=== PATIENT | male | born 2000 | race Caucasian/White ===

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

== ENCOUNTER 2019-10-26 02:17 | Emergency (ER) | payer MEDICAID, SELFPAY ==
[2019-10-26 02:27] VITALS: BP 137/93; PULSE 107; RESP 15; TEMP 37.1; O2SAT 97; BMI 29.8
--- NOTE | 2019-10-26 02:31 | XR_ITS ---
PROCEDURE: XR ANKLE LT MIN 3V CLINICAL INDICATION: fall Posttraumatic pain COMPARISON: No exams were available for comparison FINDINGS: There is a nondisplaced fracture involving the distal shaft of the fibula just above the level of the ankle joint. The fracture is oblique in nature. The ankle mortise is preserved.. The tibiofibular syndesmosis appears slightly widened. There is a mildly prominent os trigonum. IMPRESSION: 1. Nonacute distal fibular fracture. 2. Questionable mild widening of the tibiofibular syndesmosis. MRI may provide further evaluation to exclude the possibility of syndesmotic injury Dictated by: Ricky Pa MD 10/26/2019 08:13 Electronically signed by Ricky Pa MD in [place] 10/26/2019 08:13
[2019-10-26 03:02] VITALS: BP 135/80; PULSE 104; RESP 18; O2SAT 95
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
[2019-10-26 03:44] VITALS: BP 149/85; PULSE 70; RESP 18; TEMP 36.5; O2SAT 99
== END 2019-10-26 03:51 | disposition home or self-care (01) ==
PROVIDERS: Emergency Provider Emergency Medicine
DX: S82.832A Other fracture of upper and lower end of left fibula, initial encounter for closed fracture (principal); W18.39XA Other fall on same level, initial encounter; Y92.89 Other specified places as the place of occurrence of the external cause
CPT/HCPCS: 29515; 73610; 99284

== ENCOUNTER → 2019-10-30 10:21 | Outpatient (CLI) | payer MEDICAID, SELFPAY ==
--- NOTE | 2019-10-30 10:23 | XR_ITS ---
PROCEDURE: XR TIBIA FIBULA LT 2V CLINICAL INDICATION: pain Posttraumatic pain COMPARISON: XR ANKLE LT MIN 3V from 10/26/2019 FINDINGS: There is a nondisplaced fracture involving the distal shaft of the fibula oblique in nature. The proximal mid aspect of the tib fib have an unremarkable appearance. IMPRESSION: Nondisplaced distal fibular fracture Dictated by: Ricky Pa MD 10/30/2019 14:47 Electronically signed by Ricky Pa MD in [place] 10/30/2019 14:47
== END ==
PROVIDERS: PCP Nurse Practitioner Family; Visit Provider Podiatrist
DX: S82.892A Other fracture of left lower leg, initial encounter for closed fracture (principal)
CPT/HCPCS: 73590

== ENCOUNTER → 2019-11-12 15:10 | Outpatient (CLI) | payer MEDICAID, SELFPAY ==
--- NOTE | 2019-11-12 15:29 | MR_ITS ---
PROCEDURE: MR ANKLE LT WO/W CON CLINICAL INDICATION: ankle pain, possible syndesmosis injury with widening the ankle mortise. Ankle fracture. Ankle fx x3 weeks. 25ml prohance injected. COMPARISON: XR ANKLE LT MIN 3V from 10/26/2019 TECHNIQUE: Routine multiplanar multi echo sequences are performed without gadolinium enhancement. FINDINGS: Motion artifact somewhat obscures fine detail. This is specially true on the sagittal images. The anterior tibiofibular ligament has a somewhat bowed appearance with some thinning and could be due to sprain or partial tear. The posterior tibiofibular ligament is unremarkable. The tibial fibular space does not appear widened. There is some thinning of the ATFL but no evidence of a complete tear. The PT FL appears intact. The deltoid ligament appears intact. There is soft tissue swelling about the distal fibula both medially and laterally with a nondisplaced oblique fracture of the distal shaft of the fibula. There is some bone marrow edema of the medial malleolar region. The peroneal tendons, posterior tibialis, flexor hallucis and flexor digitorum longus tendons appear intact. The anterior extensor tendons appear intact. Achilles tendon is unremarkable. There is also some minimal bone marrow edema of the posterior distal tibia. Small ankle joint effusion is present. IMPRESSION: 1. Sprain or partial tear of the anterior tibiofibular ligament. The posterior tibiofibular ligament appears intact. 2. Nondisplaced oblique fracture of the distal shaft of the fibula with bone marrow edema and mild amount of soft tissue edema. 3. Bone bruise of the medial malleolus and along the posterior distal tibia with ankle joint effusion and moderate amount of subcutaneous ankle edema Dictated by: Ricky Pa MD 11/14/2019 10:13 Electronically signed by Ricky Pa MD in [place] 11/14/2019 10:13
== END ==
PROVIDERS: PCP Nurse Practitioner Family; Visit Provider Podiatrist
DX: S82.432A Displaced oblique fracture of shaft of left fibula, initial encounter for closed fracture (principal); S93.432A Sprain of tibiofibular ligament of left ankle, initial encounter; S99.912A Unspecified injury of left ankle, initial encounter
CPT/HCPCS: 73723; A9576

== ENCOUNTER 2020-01-27 10:58 | Emergency (ER) | payer MEDICAID, SELFPAY ==
[2020-01-27 11:13] VITALS: BP 135/77; PULSE 84; RESP 19; TEMP 36.6; O2SAT 98; BMI 38.3
--- NOTE | 2020-01-27 11:31 | PC.NURSE ---
PATIENT REQUESTING VACCINATION ONLY; IS NOT WANTING TO BE SEEN BY PROVIDER
[2020-01-27 11:32] VITALS: BP 135/77; PULSE 84; RESP 19; TEMP 36.6; O2SAT 98
== END 2020-01-27 11:33 | disposition home or self-care (01) ==
PROVIDERS: Emergency Provider Nurse Practitioner Family
DX: S91.331A Puncture wound without foreign body, right foot, initial encounter (principal); W22.8XXA Striking against or struck by other objects, initial encounter; Z23 Encounter for immunization
CPT/HCPCS: 90471; 90715

== ENCOUNTER 2021-03-07 20:06 | Emergency (ER) | payer MEDICAID, SELFPAY ==
[2021-03-07 20:26] VITALS: BP 156/87; PULSE 107; RESP 19; TEMP 36.8; O2SAT 98; BMI 38.3
[2021-03-07 20:52] VITALS: BP 156/87; PULSE 107; RESP 19; TEMP 36.8
--- NOTE | 2021-03-07 21:00 | HMH.EDUTC ---
[facility] [place] [facility] Disposition Clinical Impression: Nasal dryness Disposition: Home, Self-Care Condition on Discharge: Good Instructions: Nosebleeds (Alternative Therapy), Nosebleed, DI for Nosebleed, Pseudoephedrine Additional Instructions: Make sure to keep nasal passages moist you may use saline nasal spray as directed to help moisture nasal passage Follow up with your Family Doctor or ENT for further evaluation and treatment Return if needed Straight to ER if any life threatening symptoms If you are having trouble stopping your nose bleed may spray one to two sprays of Afrin in nasal passages Referrals: Suzan Warner PA [Primary Care Provider] - As needed Andrew Joseph MD [Staff Physician] - Marie Gordon MD [Consulting Physician] - Forms: Work/School Release Time of Disposition: 21:11 Medical Decision Making - Ed Inquiry Pt receiving controlled substance: No Ed was queried for this patient: No Vital Signs: 03/07/21 20:26 03/07/21 20:52 Temperature 98.3 F 98.3 F Temperature Source Oral Pulse Rate 107 H Pulse Rate [Left] 107 H Respiratory Rate 19 19 Blood Pressure 156/87 H Blood Pressure [Right Arm] 156/87 H Blood Pressure Mean [Right Arm] 110 02 Sat by Pulse Oximetry 98 [facility] [place] [facility] HPI - General Stated complaint: nosebleeds Time Seen by Provider: 03/07/21 21:00 Mode of Arrival: Ambulatory Source of Information: Patient Limitations: No Limitations Description of Symptoms (Recalled from Triage Doc. 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 pts is not having epistaxis at this time. 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 and he has been having nose bleeds on and off for awhile State that he feels like his nose is dry and when he blows it it will start bleeding State sthat work wanted him to come and get it checked so he came in No active bleeding at this time and last nose bleed was yesterday - Related Data Previous Rx's Medication Instructions Recorded ketoconazole 2 % topical cream 1 applic TOPICAL QDAY #30 g 10/30/19 meloxicam 7.5 mg tablet 7.5 mg PO ONCE #30 tab 10/30/19 Allergies Allergy/AdvReac Type Severity Reaction Status Date / Time No Known Allergies Allergy Verified 10/30/19 11:47 - Worker's Comp Is this a Worker's Comp case?: No H History - Hepatitis A Screen Drug use history?: No High risk sexual behaviors?: No History of sexually transmitted infection?: No Currently employed?: No Childcare worker?: No Do you have indoor plumbing?: Yes Do you have electricity?: Yes Attestation statement:: This patient has been screened for Hepatitis A risk factors. I have reviewed the patient's past medical history: Yes Medical History: Reports:: Asthma, Migraine Other Surgeries: Yes: No Previous Surgery - Social History Smoking Status: Light tobacco smoker Tobacco Type: smokeless tobacco # Packs/Day (cigarettes): 1 Alcohol Intake: never Alcohol Intake Frequency:: other Occupational Status: employed Family Hx:: Diabetes (Father), Cancer (Nephew ), Heart Attack (Maternal Grandfather), Hypertension, Hyperlipidemia, Asthma ROS Obtained: Yes All systems reviewed & no additional complaints, Yes Systems reviewed as appropriate & no additional complaints - Constitutional Constitutional: Reports system reviewed and no additional complaints, except as docu - Eyes Eyes: Reports system reviewed and no additional complaints, except as docu - ENT Ears, Nose, Mouth, and Throat: Reports system reviewed and no additional complaints, except as docu, Reports other (nasal dryness and nose bleeds on and off) Physical Exam - Gen
== END 2021-03-07 21:14 | disposition home or self-care (01) ==
PROVIDERS: Emergency Provider Nurse Practitioner; PCP Physician Assistant
DX: J34.89 Other specified disorders of nose and nasal sinuses (principal); F17.290 Nicotine dependence, other tobacco product, uncomplicated
CPT/HCPCS: 99202; G0463

== ENCOUNTER 2021-07-12 10:51 | Emergency (ER) | payer MEDICAID, SELFPAY ==
[2021-07-12 13:00] VITALS: BP 0/0; PULSE 0; RESP 0; TEMP -17.7; TEMP 0; O2SAT 0
== END 2021-07-12 13:01 | disposition left against medical advice (07) ==
LOC: UTC 10:57 → ER 11:06
PROVIDERS: Emergency Provider Emergency Medicine; PCP Physician Assistant
DX: Z53.21 Procedure and treatment not carried out due to patient leaving prior to being seen by health care provider (principal)
CPT/HCPCS: 99211

== ENCOUNTER 2021-07-12 19:41 | Emergency (ER) | payer MEDICAID, SELFPAY ==
[2021-07-12 19:43] VITALS: BP 149/72; PULSE 99; RESP 18; TEMP 37.3; O2SAT 99; BMI 87.0
[2021-07-12 20:00] VITALS: BP 132/67; PULSE 93; RESP 18; TEMP 37.3; O2SAT 97
--- NOTE | 2021-07-12 20:03 | XR_ITS ---
PROCEDURE INFORMATION: Exam: XR Chest Exam date and time: 07/12/2021 8:02 PM Age: 21 years old Clinical indication: Cough and fever; Additional info: Cough congestion x two days TECHNIQUE: Imaging protocol: XR of the chest. Views: 2 views. COMPARISON: No relevant prior studies available. FINDINGS: Lungs: Unremarkable. No consolidation. Pleural spaces: Unremarkable. No pleural effusion. No pneumothorax. Heart/Mediastinum: Unremarkable. No cardiomegaly. Bones/joints: Unremarkable. IMPRESSION: No acute findings.
[2021-07-12 20:13] LABS: Coronavirus 19, PCR Not Detected (NotDetected); Influenza B, PCR Not Detected (NotDetected)
[2021-07-12 20:30] VITALS: BP 144/71; PULSE 94; O2SAT 96
[2021-07-12 20:30] LABS: Strep Scrn Group A (Rapid) Negative (Negative)
--- NOTE | 2021-07-12 21:02 | HMH.EDGENADL ---
ED Disposition Clinical Impression: Viral URI with cough Disposition: Home, Self-Care Condition on Discharge: Good Additional Instructions: Please follow-up with your primary care provider in the outpatient setting, return to the ED with any new or worsening his symptoms Referrals: Suzan Warner PA [Primary Care Provider] - - Critical Care Critical Care Time: No Attestation: On 07/12/21, the high probability of a clinically significant, sudden or life threatening deterioration of the following system(s) required my full and direct attention, intervention and personal management. The time I documented below is in addition to time spent performing reported procedures but includes the following listed in this critical care notation. Medical Decision Making - Medical Records Medical records reviewed: Yes: I reviewed the patient's medical records. - Ed Inquiry Pt receiving controlled substance: No Vital Signs: 07/12/21 19:43 07/12/21 20:00 07/12/21 20:30 Temperature 99.1 F 99.1 F Temperature Source Oral Pulse Rate 93 H 94 H Pulse Rate [Left Radial] 99 H Respiratory Rate 18 18 Blood Pressure 132/67 144/71 H Blood Pressure [Right Arm] 149/72 H Blood Pressure Mean 88 97 Blood Pressure Mean [Right Arm] 97 Blood Pressure Position [Right Arm] Sitting 02 Sat by Pulse Oximetry 99 97 96 Oxygen Delivery Method Room Air - Lab Data Lab Results 07/12/21 20:04: Group A Strep Rapid Negative Orders (Tests/Meds): ORDERS Category Date Time Status CXR 2 view (NOT portable) [XR chest 2V] Stat Exams 07/12/21 20:03 Taken Rapid PCR Covid and Flu A/B Stat Lab 07/12/21 20:04 Received Strep Screen Confirmation Stat Micro 07/12/21 20:04 Received Medical Decision Narrative: Patient is an otherwise healthy 21-year-old male presents the ED today for fever, sore throat, patient is well-appearing on initial evaluation, no acute distress, vital signs within normal limits and stable, patient's chest tightness and cough and sore throat are likely related to a viral process, either bronchitis or strep throat or standard viral URI, we will do flu test Covid test, given patient's concern for his chest tightness a chest x-ray. No asymmetric lung sounds auscultated on exam and believe the likelihood of pneumonia in this patient is low given the swelling had symptoms for 24 hours, no high fevers no productive sputum. Strep swab resulted as negative, will be sent for reflex culture, cough does not resolve for some hours, I have independently reviewed and interpreted patient's chest x-ray with no evidence of focal consolidation or pneumonia, consideration for perihilar fullness, however would be very mild if present, given this we did not need to treat with antibiotics in the outpatient setting, patient given return precautions return to the ED with any new or worsening symptoms is verbalized understanding with this plan, encouraged to follow-up with PCP. General Adult HPI - General Chief complaint: Fever Stated complaint: fever, WHITNEY congestion sore throat Time Seen by Provider: 07/12/21 20:00 Mode of Arrival: Ambulatory Limitations: No Limitations Description of Symptoms (Recalled from ER Triage Doc. by RN): COUGH, FEVER (102 AT HOME) CONGESTION X 2 DAYS. SORE THROAT. PT TOOK TYLENOL PRIOR TO ARRIVAL. - History of Present Illness HPI narrative: Patient is a 21-year-old otherwise healthy male who presents the ED today for fever sore throat that began yesterday, states that he has been having a cough as well, as well as some tightness in his chest that is right in the center, states that he has not had any evidence of palpitations, no significant shortness of breath, no chest pain, no pain radiating to his upper extremities, no dizziness, confusion, or presyncope or abdominal pain or nausea. States he has been eating and drinking okay, but felt very weak today at his place of work, and states kendra
[2021-07-12 21:17] VITALS: BP 143/72; PULSE 87; RESP 18; TEMP 36.7; O2SAT 97
[2021-07-12 21:33] LABS: Influenza A, PCR Detected (NotDetected)
== END 2021-07-12 21:19 | disposition home or self-care (01) ==
PROVIDERS: Emergency Provider Student in an Organized Health Care Education/Training Program; PCP Physician Assistant
DX: J06.9 Acute upper respiratory infection, unspecified (principal); F17.210 Nicotine dependence, cigarettes, uncomplicated
CPT/HCPCS: 71046; 87430; 99283; C9803; U0003; U0005

== ENCOUNTER 2023-06-06 12:48 | Emergency (ER) | payer MEDICAID, SELFPAY ==
[2023-06-06 13:50] VITALS: BP 0/0; PULSE 0; RESP 0; TEMP -17.7; TEMP 0; O2SAT 0
== END 2023-06-06 13:50 | disposition home or self-care (01) ==
LOC: UTC 12:54
PROVIDERS: Emergency Provider Nurse Practitioner Family; PCP Nurse Practitioner Family
DX: Z53.21 Procedure and treatment not carried out due to patient leaving prior to being seen by health care provider (principal)

== ENCOUNTER 2023-10-08 11:56 | Emergency (ER) | payer MEDICAID, SELFPAY ==
[2023-10-08 12:05] VITALS: BP 158/85; PULSE 91; RESP 18; TEMP 37.1; O2SAT 97; BMI 50.1
--- NOTE | 2023-10-08 12:20 | EXP.UTC ---
Discharge Plan Disposition Patient Disposition: Home, Self-Care Prescriptions Prescriptions: New ondansetron 4 mg tablet,disintegrating 4 mg PO Q8H Qty: 10 0RF cefdinir 300 mg capsule 300 mg PO Q12H 10 Days Qty: 20 0RF Referrals Follow up/Referrals: Luis M Thrasher APRN [Primary Care Provider] - See instructions Activity Restrictions/Add. Instructions Additional Instructions/Restrictions: Take medication as prescribed. Increase fluids and rest. If symptoms persist or worsen, follow up with PCP. Clinical Impressions Clinical Impression: Acute pharyngitis Qualifiers: Pharyngitis/tonsillitis etiology: unspecified etiology Qualified Code(s): J02.9 - Acute pharyngitis, unspecified Nausea & vomiting Qualifiers: Vomiting type: bilious vomiting Qualified Code(s): R11.14 - Bilious vomiting Instructions Patient Instructions: DI for Strep Throat, DI for Vomiting -- Adult Discharge ED Provider: Chiquita Ho [facility] [place] General Stated complaint: fever [address] st vomiting diarrhea Mode of Arrival: Ambulatory Source of Information: Patient Limitations: No Limitations Time Seen by Provider: 10/08/23 12:20 Description of Symptoms (Recalled from Triage Doc. by RN): PATIENT C/O FEVER, VOMITING, AND SORE THROAT X 3 DAYS HEENT Symptoms (Recalled from RN notes): Yes Resp Symptoms (Recalled from RN notes): No Skin Symptoms (Recalled from RN notes): No MS Symptoms (Recalled from RN notes): No Functional Status (Recalled from RN notes): WNL History of Present Illness Provider Complaint: Pt reports that he started feeling bad on Sunday. He reports over the weekend he had a fever as high as 101.4, vomiting, and sore throat. He states that he has taken Tylenol for his symptoms, and took a dose this morning. Related Data Previous Rx's Medication Instructions Recorded cefdinir 300 mg capsule 300 mg PO Q12H 10 days #20 caps 10/08/23 ondansetron 4 mg disintegrating 4 mg PO Q8H #10 tabs 10/08/23 tablet Allergies Allergy/AdvReac Type Severity Reaction Status Date / Time No Known Allergies Allergy Verified 10/30/19 11:47 Worker's Comp Is this a Worker's Comp case?: No [facility] Disclaimer: The information contained in this section may have been updated after the patient was seen, as this information can be updated by other users. Medical History (Updated 10/08/23 @ 12:32 by Chiquita Ho APRN) No significant past medical history Social History Smoking Status: Light tobacco smoker tobacco type: smokeless tobacco alcohol intake: never current occupational status: employed Travel in the last 8 weeks: None ROS Obtained: Yes All systems reviewed & no additional complaints except as documented Constitutional Constitutional: Reports system reviewed and no additional complaints, except as documented, Reports fever(s), Reports headache(s) and Reports malaise Eyes Eyes: Reports system reviewed and no additional complaints, except as documented ENT Ears, Nose, Mouth, and Throat: Reports system reviewed and no additional complaints, except as documented, Reports headache(s) and Reports sore throat Cardiovascular Cardiovascular: Reports system reviewed and no additional complaints, except as documented Respiratory Respiratory: Reports system reviewed and no additional complaints, except as documented Gastrointestinal Gastrointestingal: Reports system reviewed and no additional complaints, except as documented, nausea and vomiting Genitourinary Male Genitourinary: Reports system reviewed and no additional complaints, except as documented Musculoskeletal Musculoskeletal: Reports system reviewed and no additional complaints, except as documented Integumentary/Breasts Skin/Breast: Reports system reviewed and no additional complaints, except as documented Neurologic Neurologic: Reports system reviewed and no additional complaints, except as documented and Reports headache(s) Endocrine Endocrine: Reports system reviewed and no additional complaints, except as documented Hematologic/Lymphatic Henatologic/Lymphatic: Reports system reviewed and no additional complaints, except as documented Allergic/Immunologic Allergic/Immunologic: Reports system reviewed and no additional complaints, except as documented Physical Exam General General appearance: alert Comment: ill appearing Head Head exam: atraumatic and normocephalic Eye Eye exam: Present normal appearance Expanded ENT Exam External ear exam: Present normal external inspection Nose exam: Absent sinus tenderness Nasal speculum exam: Bilateral: normal Mouth exam: Present normal external inspection Teeth exam: Present normal inspection Throat exam: Present tonsillar erythema, tonsillomegaly and tonsillar exudate Neck Neck exam: Present lymphadenopathy Chest Chest inspection: Present normal inspection and symmetric chest wall rise Respiratory Respiratory exam: Present normal lung sounds bilaterally Cardiovascular Cardiovascular exam: Present regular rate, normal rhythm and normal heart sounds Abdominal Exam Abdominal exam: Present soft and normal bowel sounds Back Exam Back exam: Present normal inspection Neurological Exam Neurological exam: Present alert and oriented X3 Psychiatric Psychiatric exam: Present normal affect and normal mood Skin Skin exam: Present warm, dry and intact Lymphatic Lymphatic Findings: no adenopathy Medical Decision Making Ed Inquiry Pt receiving controlled substance: No Ed was queried for this patient: No Vital Signs: 10/08/23 12:05 Temperature 98.7 F Temperature Source Oral Pulse Rate [Left Brachial] 91 H Respiratory Rate 18 Blood Pressure [Left Arm] 158/85 H Blood Pressure Mean [Left Arm] 109 Blood Pressure Source [Left Arm] Automatic Cuff Blood Pressure Position [Left Arm] Sitting 02 Sat by Pulse Oximetry 97 Oxygen Delivery Method Room Air
[2023-10-08 12:34] LABS: UTC Strep Screen (Rapid) Negative (Negative)
[2023-10-08 12:35] VITALS: BP 158/85; PULSE 91; RESP 18; TEMP 37.1; O2SAT 97
== END 2023-10-08 12:47 | disposition home or self-care (01) ==
PROVIDERS: Emergency Provider Nurse Practitioner Family; PCP Nurse Practitioner Family
DX: R11.14 Bilious vomiting (principal); J02.9 Acute pharyngitis, unspecified; R50.9 Fever, unspecified; R51.9 Headache, unspecified; F17.290 Nicotine dependence, other tobacco product, uncomplicated
CPT/HCPCS: 87880; 99212; 99214; G0463

== ENCOUNTER 2024-02-12 16:56 | Emergency (ER) | payer MEDICAID, SELFPAY ==
[2024-02-12 17:15] VITALS: BP 137/88; PULSE 82; RESP 20; TEMP 36.5; O2SAT 95; BMI 49.4
--- NOTE | 2024-02-12 17:24 | EXP.UTC ---
Discharge Plan Disposition Patient Disposition: Home, Self-Care Condition: Good Prescriptions Prescriptions: New penicillin V potassium 500 mg tablet 500 mg PO BID Qty: 20 0RF ondansetron 4 mg tablet,disintegrating 4 mg PO Q8H PRN (Reason: nausea and vomiting) Qty: 10 0RF Referrals Follow up/Referrals: Suzan Warner PA [Primary Care Provider] - See instructions Activity Restrictions/Add. Instructions Additional Instructions/Restrictions: *Monitor Temp, Over the counter Motrin or Tylenol as directed/as needed Tylenol every 4 hours and Motrin every 6 hours (as long as your family doctor has told you that you can take it) for fever or pain. and straight to ER if unable to lower temp less than 101.0 after medication given *Warm salt water gargles may help to soothe the throat *Throat Lozenges? *Warm fluids like tea with honey may help to soothe the throat? *Sleep elevated *Humidifier/Vaporizer *If you did not take Penicillin shot or was unable to, start taking antibiotic immediately and make sure that you take it for the FULL length of time although you should start to feel better in 24-48 hours *change toothbrush and toothpaste 24-48 hours after starting to take antibiotics so you do not reinfect yourself Monitor Temp. Tylenol and/or Ibuprofen as needed. ER if fever is no less than 101 despite alternating Tylenol and Ibuprofen * Encourage fluids, water, Gatorade, powerade, pedialyte if infant/toddler/or child *Cold fluids, popsicles and ice cream may feel good on his throat Follow up IMMEDIATELY for new or worsening symptoms or no Noticeable improvement over the next 48-72 hours. 911 for difficulty breathing or swallowing Clinical Impressions Clinical Impression: Strep throat Stand Alone Forms Stand Alone Forms: Work/School Release Instructions Patient Instructions: DI for Strep Throat, Penicillin V Potassium Print Language Print Language: Luxem[place]ish Discharge ED Provider: Laurie Lopez [facility] [place] HPI General Stated complaint: sore throat,fever,cough,nausea Mode of Arrival: Ambulatory Source of Information: Patient Limitations: No Limitations Time Seen by Provider: 02/12/24 17:24 Description of Symptoms (Recalled from Triage Doc. by RN): PATIENT C/O FEVER, SORE THROAT, NAUSEA, AND COUGH THAT STARTED YESTERDAY MORNING HEENT Symptoms (Recalled from RN notes): Yes Resp Symptoms (Recalled from RN notes): Yes Skin Symptoms (Recalled from RN notes): No MS Symptoms (Recalled from RN notes): No Functional Status (Recalled from RN notes): WNL History of Present Illness Provider Complaint: Patient states that he woke up yesterday with sore throat, fever, headache, nausea and not feeling well States today his throat was hurting worse and he noticed white patchy areas on his tonsils States he was worried he may have strep throat so he came in to get it checked Related Data Previous Rx's ?Medication ?Instructions ?Recorded ondansetron 4 mg disintegrating 4 mg PO Q8H PRN nausea and 02/12/24 tablet vomiting #10 tabs penicillin V potassium 500 mg 500 mg PO BID #20 tabs 02/12/24 tablet Allergies Allergy/AdvReac Type Severity Reaction Status Date / Time No Known Allergies Allergy Verified 10/30/19 11:47 Worker's Comp Is this a Worker's Comp case?: No [facility] Disclaimer: The information contained in this section may have been updated after the patient was seen, as this information can be updated by other users. Medical History (Updated 02/12/24 @ 17:28 by Laurie Lopez APRN) No significant past medical history Social History Smoking Status: Light tobacco smoker tobacco type: smokeless tobacco alcohol intake: never current occupational status: employed Travel in the last 8 weeks: None ROS Obtained: Yes All systems reviewed & no additional complaints except as documented and Yes Systems reviewed as appropriate & no additional complaints except as documented Constitutional Constitutional: Reports system reviewed and no additional complaints, except as documented, Reports as per HPI, Reports fever(s) and Reports headache(s) ENT Ears, Nose, Mouth, and Throat: Reports system reviewed and no additional complaints, except as documented, Reports as per HPI, Reports headache(s), Reports nasal congestion, Reports nasal discharge and Reports sore throat Cardiovascular Cardiovascular: Reports system reviewed and no additional complaints, except as documented and Reports as per HPI Respiratory Respiratory: Reports system reviewed and no additional complaints, except as documented and Reports as per HPI Gastrointestinal Gastrointestingal: Reports system reviewed and no additional complaints, except as documented and as per HPI Neurologic Neurologic: Reports headache(s) Physical Exam General General appearance: alert and in no apparent distress ENT ENT exam: Present mucous membranes moist Expanded ENT Exam Throat exam: Present tonsillar erythema and tonsillar exudate Respiratory Respiratory exam: Present normal lung sounds bilaterally; Absent respiratory distress or wheezes Cardiovascular Cardiovascular exam: Present regular rate, normal rhythm and normal heart sounds Neurological Exam Neurological exam: Present alert, oriented X3 and normal gait Medical Decision Making Medical Records Screening: Per USPSTF and CDC recommendations, given the prevalence of disease in our region, it is our hospital?s policy to screen for HIV and viral Hepatitis for all patients aged 18 and over and those with ongoing risk factors. Ed Inquiry Pt receiving controlled substance: No Ed was queried for this patient: No Vital Signs: 02/12/24 17:15 Temperature 97.7 F Temperature Source Oral Pulse Rate [Left Brachial] 82 Respiratory Rate 20 Blood Pressure [Left Arm] 137/88 Blood Pressure Mean [Left Arm] 104 Blood Pressure Source [Left Arm] Automatic Cuff Blood Pressure Position [Left Arm] Sitting 02 Sat by Pulse Oximetry 95 Oxygen Delivery Method Room Air Lab Data Lab results reviewed: Yes I reviewed the patient's lab results.
[2024-02-12 17:32] LABS: UTC Strep Screen (Rapid) Positive (Negative)
[2024-02-12 17:37] VITALS: BP 137/88; PULSE 82; RESP 20; TEMP 36.5; O2SAT 95
== END 2024-02-12 17:40 | disposition home or self-care (01) ==
PROVIDERS: Emergency Provider Nurse Practitioner; PCP Physician Assistant
DX: J02.0 Streptococcal pharyngitis (principal)
CPT/HCPCS: 87880; 99213; G0381

== ENCOUNTER 2024-10-31 10:13 | Outpatient (CLI) | payer BC, SELFPAY ==
[2024-10-31 17:11] LABS: Hematocrit 49.0 % (42.0-52.0); Hemoglobin 16.6 g/dL (14.1-18.0); Immature Granulocytes % 0.1 %; Mean Corpuscular HGB Conc 33.9 g/dL (31.8-35.4); Mean Corpuscular Hemoglobin 30.1 pg (27.0-31.2); Mean Corpuscular Volume 88.8 fl (80-94); Nucleated Red Blood Cells % 0 %; Platelet Count 245 K/mm3 (142-424); Red Blood Count 5.52 M/mm3 (4.60-6.20); Red Cell Distribution Width-SD 40.8 fL; White Blood Count 7.1 K/mm3 (4.8-10.8)
[2024-10-31 17:33] LABS: Alanine Aminotransferase 31 U/L (12-78); Albumin Level 4.9 g/dl (3.5-5.0); Albumin/Globulin Ratio 1.7 (1.1-1.8); Alkaline Phosphatase 72 U/L (38-126); Anion Gap 22.1 mEq/L (5-15); Aspartate Amino Transferase 33 U/L (17-59); Bilirubin,Total 1.6 mg/dl (0.2-1.3); Blood Urea Nitrogen 8 mg/dl (9-20); Calcium 10.3 mg/dl (8.4-10.2); Carbon Dioxide 23 mmol/L (22.0-30.0); Chloride 100 mmol/L (98-107); Cholesterol 123 mg/dl (140-200); Creatinine,Serum 0.70 mg/dl (0.66-1.25); Estimated Glomerular Filt Rate 137 ml/min (>60); GFR (African American) 166 ML/MIN (>60); Globulin 2.9 g/dL (1.3-3.2); Glucose 63 mg/dl (74-100); HDL Cholesterol 32 mg/dl (40-60); Potassium 5.1 mmoL/L (3.5-5.1); Sodium 140 mmol/L (136-145); Total Protein,Serum 7.8 g/dl (6.3-8.2); Triglycerides 101 mg/dl (30-150)
[2024-10-31 17:50] LABS: 25-OH Vitamin D, Total 31.2 ng/mL (30-100)
[2024-10-31 18:05] LABS: Thyroid Stimulating Hormone 0.91 uIU/mL (0.465-4.68)
[2024-10-31 18:21] LABS: Hepatitis C Ab Qual. W/ RFX NEGATIVE (Negative)
[2024-11-02 09:20] LABS: Hepatitis B Surface Antigen Negative (Negative)
== END 2024-10-31 23:59 | disposition home or self-care (01) ==
LOC: LAB.DROPOF 11-03 10:15
PROVIDERS: PCP Family Medicine; Visit Provider Family Medicine
DX: R63.4 Abnormal weight loss (principal); Z68.41 Body mass index [BMI] 40.0-44.9, adult; Z11.4 Encounter for screening for human immunodeficiency virus [HIV]; Z11.59 Encounter for screening for other viral diseases
CPT/HCPCS: 80053; 80061; 80074; 82306; 84443; 85025; 87340; 87389